=== PATIENT | female | born 1955 ===

== ENCOUNTER 2024-05-24 14:13 | Emergency (ER) | payer OTHER ==
[~2024-05-24] VITALS: Ht 152.4 cm; Wt 67.1 kg
[2024-05-24] MEDS ORDERED: TIMOLOL MALEATE5 M4 (14:23)
[2024-05-24] MEDS ORDERED: GABAPENTIN800 M1 (14:23)
[2024-05-24] MEDS ORDERED: UBRELVY100 MG (14:23)
[2024-05-24] MEDS ORDERED: KETOROLAC TROMETHAMINE 30 MG VIAL IM STA (16:41)
[2024-05-24] MEDS ORDERED: ORPHENADRINE CITRATE 30 MG/ML AMPUL IM STA (16:41)
[2024-05-24] MEDS ORDERED: DEXAMETHASONE SODIUM PHOSPHATE 4 MG/ML VIAL IM STA (16:41)
[2024-05-24] MEDS ORDERED: ORPHENADRINE CITRATE 30 MG/ML AMPUL ONE (16:47)
[2024-05-24] MEDS ORDERED: DEXAMETHASONE SODIUM PHOSPHATE 4 MG/ML VIAL ONE (16:47)
[2024-05-24] MEDS ORDERED: KETOROLAC TROMETHAMINE 30 MG VIAL ONE (16:47)
== END 2024-05-24 17:40 | disposition home or self-care (01) ==
LOC: ER 14:15
DX: R51.9 Headache, unspecified (principal); Z88.6 Allergy status to analgesic agent